=== PATIENT | female | born 1940 | race Caucasian/White ===

== ENCOUNTER 2017-09-10 11:53 | Observation (INO) | payer MEDICARE ==
--- NOTE | 2017-09-10 12:58 | RAD ---
CHEST ONE VIEW: History: Altered mental status. Comparison: None. FINDINGS: Normal cardiac silhouette. The pulmonary vessels and hilum are normal. No massed or consolidation. N o pneumothorax or osseous abnormality. IMPRESSION: No acute cardiopulmonary process. POS: [facility]
--- NOTE | 2017-09-10 13:02 | CT ---
NONCONTRAST HEAD CT: History: Altered mental status. Comparison: None. Technique: Noncontrast head CT is performed in the axial plane. FINDINGS: No parenchymal hemorrhage. No extraaxial hematoma. No midline shift. Basilar cisterns are patent. Br ain volume is age appropriate. Cortical thayer white matter differentiation is preserved. Ventricles and sulci are patent and symmetr ic. Calvarium is intact. Adequate aeration of the sinuses and mastoid air cells. Cavernous carotid ather osclerosis is noted. IMPRESSION: No acute intracranial process. POS: [facility]
[2017-09-10 13:03] LABS: #Eosinphils 0.1 thou/uL (0.0-0.7); #Lymphocytes 1.6 thou/uL (1.20-3.40); #Monocytes 0.6 thou/uL (0.11-0.59); #Neutrophils 8.2 thou/uL (1.40-6.50); %Basophils 0.4 % (0.0-1.0); %Eosinophils 0.8 % (0.0-10.0); %Lymphocytes 15.1 % (21.0-51.0); %Monocytes 5.7 % (0.0-10.0); Hematocrit 44.4 % (36.0-47.0); Mean Platelet Volume 6.9 fL (7.4-10.4); Red Blood Cell (RBC) Count 4.74 mill/uL (4.20-5.40); White Blood Cell (WBC) Count 10.6 thou/uL (4.8-10.8)
[2017-09-10 13:20] LABS: Lactic Acid - Sepsis 2.6 mmol/L (0.5-2.2)
[2017-09-10 13:25] LABS: Bilirubin Negative (Negative); Blood, Urine Trace (Negative); Glucose, Urine (Dipstick) Negative (Negative); Ketone, Urine Negative (Negative); Nitrite Negative (Negative); Protein, Urine (Dipstick) Negative (Neg-Trace); Urobilinogen 0.2 mg/dL (0.2-1.0)
[2017-09-10 13:26] LABS: ALT (SGPT) 19 U/L (8-55); AST (SGOT) 20 U/L (5-34); Alkaline Phosphatase 85 U/L (40-150); Anion Gap 12 mmol/L (10-20); BUN (Urea Nitrogen) 15 mg/dL (9.8-20.1); Bilirubin, Total 1.1 mg/dL (0.2-1.2); CK (CPK) 68 U/L (29-168); Calc. Creatinine Clearance 0 mL/min (70-130); Calcium 9.6 mg/dL (7.8-10.44); Carbon Dioxide 27 mmol/L (23-31); Chloride 105 mmol/L (98-107); Estimated GFR-MDRD 68; Globulin 2.9 g/dL (2.4-3.5); Protein, Total 7.4 g/dL (6.0-8.3)
[2017-09-10 13:27] LABS: Bacteria/HPF None Seen HPF (None Seen); Hyaline Casts/LPF 0-3 HYALINE CAST LPF (0-3 Hyaline); Squamous Epithelial None Seen HPF (0-3); WBC/HPF 0-3 HPF (0-3)
[2017-09-10 13:29] LABS: Troponin I 0.012 ng/mL (< 0.028)
[2017-09-10 15:47] VITALS: BMI 26.9
[2017-09-10] MEDS ORDERED: Ondansetron ODT 4 MG TAB SL PRN (16:41)
[2017-09-10] MEDS ORDERED: Ondansetron HCl/PF 4 MG/2 ML Vial IVP PRN ×2 (16:41→18:07)
[2017-09-10] MEDS ORDERED: Acetaminophen 500 MG TAB PO PRN (18:07)
[2017-09-10] MEDS ORDERED: cloNIDine HCl 0.1 MG TAB PO PRN (18:07)
[2017-09-10] MEDS ORDERED: Loratadine 10 MG TAB PO PRN (18:07)
[2017-09-10] MEDS ORDERED: Ondansetron ODT 4 MG TAB PO PRN (18:07)
[2017-09-10] MEDS ORDERED: Azithromycin 250 MG TAB PO SCH (18:15)
[2017-09-10] MEDS: Sodium Chloride 0.9% 1,000 ML IV SCH (18:30)
--- NOTE | 2017-09-10 18:51 | HP ---
DATE OF ADMISSION: 09/10/2017 PRIMARY CARE PROVIDER: Dr. Trice Padilla. CHIEF COMPLAINT: Altered mental status. HISTORY OF PRESENT ILLNESS: This is a 77-year-old female who presents to [facility] with complaints of confusion and altered mental status. The history is obtained a fter interviewing the patient as well as patient's and review of the electronic medical [address] in the emergency room. The patient states that she had been battling a head cold and cough over the last 10-12 days, self treating with pojm-csl-hjpkcem cold remedies including Nyquil over the las t 12 days, Mucinex and Robitussin and Robitussin without specific relief of her symptoms. The patie nt states she became concerned when her symptoms did not improve and presented to her ENT for evalua tion. The patient states that she does not recall driving to her ENT visit and does not recall visi t itself, but does state that she was prescribed antibiotic therapy which she feels was Zithromax. The patient states she apparently left the ENT's office and does not recall her journey, apparently leaving the ENT office and becoming confused and unable to return home. Her called her appr oximately 1 hour after she was suppose to return stating that she was unsure of how to get home or w here she was. The patient has exhibited nothing similar to this in the past and has no memory issue s as far as the patient or her report. Patient does not recall driving to the gas station w here she was picked up by her and has little recollection of her transfer to the emergency r oom. The reports patient kept asking similar questions repeatedly after answering them. In the emergency room, the patient underwent general evaluation and was apparently oriented to person, place and time by the exam recorded in the EMR. The patient denies any other prescription medicati ons other than levothyroxine, which she is taking chronically. The patient denied any narcotic expo sure, but does admit to taking Nyquil regularly over the last 10-12 days. The patient denies any sl eep deprivation, recent head trauma, injury, but does admit to the head cold with congestion and kenyetta n over her left teeth. The patient denies any recent travel history or recent vaccinations. In the emergency room, patient underwent CT imaging of the brain showing no acute process and portable miley st x-ray was negative. The patient was transferred to the telemetry unit for further evaluation. PAST MEDICAL HISTORY: 1. Hypothyroidism with thyroid replacement therapy. 2. Hyperlipidemia. PAST SURGICAL HISTORY: Status post thyroid cyst removal. CURRENT MEDICATIONS: 1. Levothyroxine 75 mcg 1 tablet p.o. daily. 2. Simvastatin 10 mg 1 tablet p.o. daily. ALLERGIES: PENICILLIN. FAMILY HISTORY: No inheritable diseases per patient report. Mother lived into her upper 90s. SOCIAL HISTORY: The patient is , accompanied by her in the hospital. Resides in [place], [place]. Retired. Occasional alcohol use. No tobacco or illicit drug use. REVIEW OF SYSTEMS: The following complete review of systems was negative, unless otherwise mentione d in the HPI or below: Constitutional: Weight loss or gain, ability to conduct usual activities. Skin: Rash, itching. Eyes: Double vision, pain. ENT/Mouth: Nose bleeding, neck stiffness, pain, tenderness. Cardiovascular: Palpitations, dyspnea on exertion, orthopnea. Respiratory: Shortness of breath, wheezing, cough, hemoptysis, fever or night sweats. Gastrointestinal: Poor appetite, abdominal pain, heartburn, nausea, vomiting, constipation, or diar vannessa. Genitourinary: Urgency, frequency, dysuria, nocturia. Musculoskeletal: Pain, swelling. Neurologic/Psychiatric: Anxiety, depression. Allergy/Immunologic: Skin rash, bleeding tendency. Otherwise negative except as stated per HPI. PHYSICAL EXAMINATION: VITAL SIGNS: In the emergency room on admission, blood pressure 204/89, pulse 79, respiratory rate 16, temperature 98.9 degrees Fahrenheit, O2 saturation 96% on room air. GENERAL APPEARANCE: This is a 77-year-old female, alert and oriented x3, pleasant, respon sive, in no acute distress. HEENT: Pupils are equal, round, and reactive to light and accommodation. Extraocular muscles are i ntact. No scleral icterus, no conjunctival injection. Nares patent. OP is clear. Teeth in good r epair. NECK: Supple, no cervical adenopathy, no thyromegaly, no carotid bruits, no JVD appreciated. Cervi jhon spine with full active and passive range of motion. CHEST: Lungs are clear to auscultation bilaterally. CARDIOVASCULAR: S1 and S2 without noted murmur. ABDOMEN: Rounded, soft, nontender, nondistended. Bowel sounds are positive in all four quadrants. There is no hepatosplenomegaly, no abdominal bruits, no rebound or guarding appreciated. EXTREMITIES: Warm and dry with fair turgor. No clubbing, cyanosis or asymmetric edema appreciated. Pulses palpable distally at the dorsalis pedis, posterior tibial, and popliteal arteries bilateral ly. Capillary refill less than 2 seconds. NEUROLOGIC: Cranial nerves II-XII are grossly intact. No focal or lateralizing signs are appreciat ed. PERTINENT LABORATORY DATA AND X-RAY FINDINGS: Complete metabolic profile within normal limits. Lac tic acid level ranged between 1.2-2.6, troponin I negative x1. CBC showed a white blood cell count of 10.6, hemoglobin 15, hematocrit 44, platelet count 274 with 78% neutrophils. Urinalysis showed t race blood and trace leukocyte esterase. Portable chest x-ray dated 09/10/2017 showed no acute card iopulmonary process. CT of the brain without contrast dated 09/10/2015 showed no acute intracranial process. EKG dated 09/10/2017 by my interpretation shows a sinus mechanism with rates in the 70s. Normal R-wave progression noted in the precordial leads. Left axis deviation noted. No acute ST-T wave changes appreciated. ASSESSMENT AND PLAN: 1. Acute encephalopathy, etiology unclear. Questionable iatrogenic effect with potential over the counter medication component. We will proceed with neuro imaging including MRI of the brain to rule out occult infarct or tumor. Check carotid Doppler study to rule out focal stenosis. Check TSH an d free T4 level. Continue to monitor clinically. 2. Elevated blood pressure. No specific history of hypertension per patient report. We will veronika nue to monitor blood pressure trend and treat accordingly. 3. Hypothyroidism. Resume levothyroxine 75 mcg daily. Check TSH and free T4 level in the a.m. 4. Question of acute on chronic bronchitis. Start Zithromax 500 mg daily, albuterol metered dose i nhaler 2 puffs q.6 hourly p.r.n., Tessalon Perles 200 mg p.o. q.6 hours. 5. Prophylaxis. Sequential compression devices while in bed. Pepcid 20 mg p.o. b.i.d. 6. Code status is FULL. Surrogate medical decision maker is patient's spouse.
[2017-09-10] MEDS: PROVENTIL INHALER 6.7 G (200 INHALATIONS) INH SCH (19:02)
[2017-09-10] MEDS: Benzonatate 100 MG CAP PO PRN (21:22)
[2017-09-10] MEDS: Famotidine 20 MG TAB PO SCH (21:22)
--- NOTE | 2017-09-10 21:57 | ULT ---
BILATERAL CAROTID DUPLEX ULTRASOUND WITH SPECTRAL ANALYSIS AND COLOR FLOW EVALUATION: 09/10/17 HISTORY: Altered mental status. FINDINGS: Dupont scale, color flow, doppler evaluation, and spectral analysis of the bilateral carotid arteries is performed with 2D imaging. There is atherosclerotic plaque seen within the distal common carotid arteries as well as involving the carotid bulbs and proximal internal carotid arteries. There is less than 50% maximal stenosis in the bilateral internal carotid arteries according to the peak systolic velocities and the ICA/CCA ratios. The peak systolic velocity in the right ICA is 76 c m/s with an ICA/CCA ratio of 0.82. The peak systolic velocity in the left ICA is 93 cm/s with an ICA /CCA ratio of 0.87. Antegrade flow is demonstrated in the vertebral arteries bilaterally. IMPRESSION: No hemodynamically significant stenosis in the blateral internal carotid arteries. POS: [facility]
[2017-09-11] MEDS: PROVENTIL INHALER 6.7 G (200 INHALATIONS) INH SCH ×3 (01:10→13:24)
[2017-09-11] MEDS: Benzonatate 100 MG CAP PO PRN ×2 (04:12→11:12)
[2017-09-11] MEDS: Sodium Chloride 0.9% 1,000 ML IV SCH (04:12)
[2017-09-11] MEDS ORDERED: Levothyroxine Sodium 75 MCG TAB PO SCH (06:00)
[2017-09-11] MEDS: Famotidine 20 MG TAB PO SCH (08:56)
[2017-09-11] MEDS ORDERED: FLU VACC TS2017-18 (>65YR) 0.5 ML SYRINGE IM ONE (09:00)
--- NOTE | 2017-09-11 10:25 | PDOC.PN ---
- Subjective Encounter Start Date: 09/11/17 Encounter Start Time: 10:23 Patient seen at bedside. More lucid today, back to baseline. No overnight events , no new complaints. - Objective Resuscitation Status: Resuscitation Status FULL:Full Resuscitation MAR Reviewed: Yes Vital Signs & Weight: Vital Signs (12 hours) Temp Pulse Resp BP Pulse Ox 09/11/17 08:00 97.8 F 60 16 09/11/17 07:30 97.8 F 60 16 130/59 L 98 09/11/17 03:56 97.6 F 71 12 127/66 98 09/10/17 23:58 98.2 F 71 12 134/67 98 Weight Weight 173 lb 3.2 oz I&O: 09/10/17 09/11/17 09/12/17 06:59 06:59 06:59 Intake Total 1626 Balance 1626 Result Diagrams: 09/10/17 12:40 09/10/17 12:40 Phys Exam - Physical Examination Constitutional: NAD HEENT: moist MMs Neck: no JVD Respiratory: clear to auscultation bilateral Cardiovascular: RRR Gastrointestinal: soft Musculoskeletal: pulses present Neurological: moves all 4 limbs Psychiatric: normal affect, A&O x 3 Dx/Plan (1) Altered mental status Code(s): R41.82 - ALTERED MENTAL STATUS, UNSPECIFIED Status: Resolved (2) Hyperlipidemia Code(s): E78.5 - HYPERLIPIDEMIA, UNSPECIFIED Status: Chronic - Plan cont current plan of care, plan discussed w/ family, PT/OT, social work msw * AMS is likely due to iatrogenic ingestion of OTC cold medications. Currently she is back to baseline. * D/C Home if MRI negative
[2017-09-11 12:03] VITALS: BP 137/65; TEMP 97.7
--- NOTE | 2017-09-11 13:32 | MRI ---
MRI OF THE BRAIN: Comparison: None. History: Amnesia, altered mental status. Patient cannot remember five hours from yesterday. Technique: Multiplanar, multisequence MRI images were obtained of the brain without and with IV cont rast. FINDINGS: There are few scattered foci of high FLAIR signal in the subcortical and periventricular white matte r, likely secondary to small vessel ischemic disease. No restricted diffusion is seen to suggest an acute infarction. No abnormal enhancement is seen on this examination. There is no evidence of hydro cephalus, intracranial hemorrhage, or extraaxial fluid collection. The expected flow voids are present. The corpus callosum, pituitary, and craniocervical junction are unremarkable. The visualized paranasal sinuses and mastoid air cells are well aerated. IMPRESSION: Small vessel ischemic disease without acute intracranial abnormality. POS: [facility]
--- NOTE | 2017-09-11 16:34 | DIS ---
DATE OF ADMISSION: 09/10/2017 DATE OF DISCHARGE: 09/11/2017 DISCHARGE DISPOSITION: Home. DISCHARGE DIAGNOSES: 1. Altered mental status, secondary to excessive NyQuil and dyex-xyd-azqvonu cold medication intake . 2. Hypothyroidism. 3. Hyperlipidemia. INPATIENT CONSULTATIONS: None. INPATIENT RADIOGRAPHIC EXAMINATIONS: 1. Chest x-ray, which revealed no acute cardiopulmonary process. 2. CT of the brain without contrast, which revealed no acute intracranial process. 3. Ultrasound of the carotids, which revealed no hemodynamically significant stenosis in bilateral internal carotid arteries. 4. MRI of the brain, which revealed small-vessel ischemic disease without acute intracranial abnorm alities. There was no hydrocephalus or intracranial hemorrhage. BRIEF HOSPITAL COURSE: Ms. Claudia Ash is a 77-year-old female with a past medical history of hypothyroidism and hyperlipidemia, who presented to the emergency room complaining of altered menta l status. According to the H and P and the , the patient was suffering from nasal congestion and a cough for the last 10-12 days prior to admission and was treating herself with pefv-oqm-gjxcx er cold remedies including NyQuil as well as Mucinex and Robitussin. She then had an appointment wi th the ENT doctor, at which time everything was normal, but thereafter she did not recall the visit afterwards. She left the ENT's office and became confused. Her called her an hour later an d she was found at a gas station. She was then brought to the emergency room where she was evaluate d for altered mental status. Initial CT imaging was negative. She was then subsequently placed on observation onto the stroke floor. Over the course of 24 hours, the patient's mentation improved dr amatically. Her imaging has been negative. Her MRI did not show evidence of an acute stroke nor di d her CT of the brain. Her carotid ultrasounds have been negative. She is back to her baseline at this time. She states that she does get some symptomatic improvement, but her ENT told it was chron ic bronchitis with albuterol. She will be discharged with an albuterol inhaler to be used p.r.n. S he is back to her baseline. There are no neurological deficits. She is lucid and aware of her situ ation. She is clinically appropriate for discharge home. Discharged home later today in stable con dition. DISCHARGE MEDICATIONS: 1. Simvastatin 10 mg p.o. at bedtime. 2. Levothyroxine 75 mcg p.o. daily. 3. Albuterol sulfate 2 puffs inhaled q.6 hours p.r.n. This is new. DISCHARGE DIET: Heart healthy. ACTIVITY: As tolerated. RESTRICTIONS: None. CODE STATUS: Full code. ALLERGIES: No known drug allergies. DISCHARGE FOLLOWUP: With her, 1. ENT, Dr. Ortiz as an outpatient. 2. Dr. Padilla as an outpatient. I explained all this to the patient at bedside as well as her , who was at bedside, and they are agreeable to the plan of discharge. All questions have been answered. Total discharge time, 33 minutes.
== END 2017-09-11 14:04 | disposition home or self-care (01) ==
LOC: ERS 11:53 → 2SE 14:00
PROVIDERS: ADMIT Family Medicine; ATTEND Family Medicine
DX: R41.82 Altered mental status, unspecified (principal); E78.5 Hyperlipidemia, unspecified; E03.9 Hypothyroidism, unspecified; Z88.0 Allergy status to penicillin; Z79.899 Other long term (current) drug therapy; Z90.89 Acquired absence of other organs
CPT/HCPCS: 70450; 70553; 71010; 80053; 82550; 82553; 83605; 84439; 84443; 84484; 85025; 90732; 93005; 93880; 94640 ×2; 99285; G0008; G0009; G0378; Q2036; 36415; 81003; 81015; 90471; 90682

== ENCOUNTER 2019-02-25 08:57 | Outpatient (CLI) | payer MEDICARE ==
--- NOTE | 2019-02-25 10:43 | BD ---
BONE DENSITOMETRY USING DEXA: HISTORY: Postmenopausal screening for osteoporosis. FINDINGS: Lumbar Spine: BMD (g/cm2) L1 1.136 T-Score: 1.3 Z-Score: 3.5 L2 1.353 T-Score: 3.0 Z-Score: 5.4 L3 1.418 T-Score: 3.0 Z-Score: 5.6 L4 1.200 T-Score: 1.3 Z-Score: 2.9 L1-L4 1.272 T-Score: 2.0 Z-Score: 4.5 Femoral Neck: 0.826 T-Score: -0.2 Z-Score: 2.0 Total Femur: 1.034 T-Score: 0.8 Z-Score: 2.6 Impression: Normal bone mineral density. No evidence of osteopenia/osteoporosis. POS: [facility]
--- NOTE | 2019-02-25 16:25 | MMO ---
Bilateral MAMMO Bilat Screen DDI+THALIA. CLINICAL HISTORY: Patient is 78 years old and is seen for screening. The patient has the following family history of breast cancer: mother, at age 91. The patient has no personal history of cancer. VIEWS: The views performed were: bilateral craniocaudal with tomosynthesis and bilateral mediolateral oblique with tomosynthesis. FILMS COMPARED: The present examination has been compared to prior imaging studies performed at [facility] on 04/05/2010, 05/25/2011 and 07/27/2015, and at [facility] on 04/05/2003 and 02/21/2006. MAMMOGRAM FINDINGS: There are scattered fibroglandular densities. There are no suspicious masses, suspicious calcifications, or new areas of architectural distortion. IMPRESSION: THERE IS NO MAMMOGRAPHIC EVIDENCE OF MALIGNANCY. A ROUTINE FOLLOW-UP MAMMOGRAM IN 1 YEAR IS RECOMMENDED. THE RESULTS OF THIS EXAM WERE SENT TO THE PATIENT. ACR BI-RADS Category 1 - Negative MAMMOGRAPHY NOTE: 1. A negative mammogram report should not delay a biopsy if a dominant of clinically suspicious mass is present. 2. Approximately 10% to 15% of breast cancers are not detected by mammography. 3. Adenosis and dense breasts may obscure an underlying neoplasm.
== END 2019-02-25 08:58 | disposition home or self-care (01) ==
LOC: BICMAMMO 08:57
PROVIDERS: ATTEND Internal Medicine
DX: Z12.31 Encounter for screening mammogram for malignant neoplasm of breast (principal); Z13.820 Encounter for screening for osteoporosis; Z78.0 Asymptomatic menopausal state; Z80.3 Family history of malignant neoplasm of breast
CPT/HCPCS: 77063; 77067; 77080

== ENCOUNTER 2020-12-05 14:17 | Emergency (ER) | payer MEDICARE ==
[2020-12-05 16:40] LABS: #Monocytes 0.6 thou/uL (0.11-0.59); #Neutrophils 4.2 thou/uL (1.40-6.50); %Basophils 0.8 % (0.0-1.0); %Eosinophils 0.3 % (0.0-10.0); %Lymphocytes 17.1 % (21.0-51.0); %Monocytes 10.2 % (0.0-10.0); %Neutrophils 71.6 % (42.0-75.0); Hemoglobin 13.3 g/dL (12.0-16.0); Mean Corpuscular HGB CONC 33.3 g/dL (32.0-36.0); Mean Corpuscular Hemoglobin 30.7 pg (27.0-31.0); Mean Corpuscular Volume 92.2 fL (78.0-98.0); Mean Platelet Volume 7.3 fL (7.4-10.4); Platelet Count 237 thou/uL (130-400); RBC Distribution Width 11.6 % (11.5-14.5); Red Blood Cell (RBC) Count 4.35 mill/uL (4.20-5.40); White Blood Cell (WBC) Count 5.9 thou/uL (4.8-10.8)
--- NOTE | 2020-12-05 16:50 | RAD ---
CHEST ONE VIEW: History: Shortness of breath, Covid positive. Comparison: 07-18-18 FINDINGS: Faint perihlar and peripheral opacities throughout the lungs. No pneumothorax. No effusion. Cardiac s ilhouette and mediastinal contours are within normal limits. IMPRESSION: Commonnly reported imaging findings of Covid-19 pneumonia. POS: [facility]
[2020-12-05 17:00] LABS: ALT (SGPT) 100 U/L (8-55); AST (SGOT) 121 U/L (5-34); Albumin 3.8 g/dL (3.4-4.8); Alkaline Phosphatase 87 U/L (40-110); Anion Gap 15 mmol/L (10-20); BUN (Urea Nitrogen) 14 mg/dL (9.8-20.1); Bilirubin, Total 1.2 mg/dL (0.2-1.2); Calc. Creatinine Clearance 0 mL/min (70-130); Calcium 7.8 mg/dL (7.8-10.44); Carbon Dioxide 23 mmol/L (23-31); Chloride 102 mmol/L (98-107); Globulin 2.8 g/dL (2.4-3.5); Glucose 89 mg/dL (83-110); Potassium 3.7 mmol/L (3.5-5.1); Protein, Total 6.6 g/dL (6.0-8.3); Sodium 136 mmol/L (136-145)
== END 2020-12-05 20:41 | disposition home or self-care (01) ==
LOC: ERS 14:17
DX: U07.1 COVID-19 (principal); R74.01 Elevation of levels of liver transaminase levels; J45.909 Unspecified asthma, uncomplicated; E03.9 Hypothyroidism, unspecified; Z79.899 Other long term (current) drug therapy
CPT/HCPCS: 36415; 71045; 80053; 85025; 93005

== ENCOUNTER 2021-07-04 10:55 | Outpatient (CLI) | payer MEDICARE | END 2021-07-04 10:56 | disposition home or self-care (01) | LOC: BICMAMMO 10:55 | PROVIDERS: ATTEND Internal Medicine | DX: Z12.31 Encounter for screening mammogram for malignant neoplasm of breast (principal); Z80.3 Family history of malignant neoplasm of breast | CPT/HCPCS: 77063; 77067 ==

== ENCOUNTER 2022-10-08 14:44 | Outpatient (CLI) | payer MEDICARE | END 2022-10-08 14:45 | disposition home or self-care (01) | LOC: BICMAMMO 14:44 | PROVIDERS: ATTEND Internal Medicine | DX: Z12.31 Encounter for screening mammogram for malignant neoplasm of breast (principal); Z80.3 Family history of malignant neoplasm of breast | CPT/HCPCS: 77063; 77067 ==

== ENCOUNTER 2023-08-16 11:33 | Outpatient (CLI) | payer MEDICARE | END 2023-08-16 11:34 | disposition home or self-care (01) | LOC: BICRAD 11:33 | PROVIDERS: ATTEND Internal Medicine | DX: I10 Essential (primary) hypertension (principal) | CPT/HCPCS: 71046 ==

== ENCOUNTER 2024-01-08 13:13 | Outpatient (CLI) | payer MEDICARE | END 2024-01-08 13:14 | disposition home or self-care (01) | LOC: BICMAMMO 13:13 | PROVIDERS: ATTEND Internal Medicine | DX: Z12.31 Encounter for screening mammogram for malignant neoplasm of breast (principal); Z13.820 Encounter for screening for osteoporosis; M85.851 Other specified disorders of bone density and structure, right thigh; Z78.0 Asymptomatic menopausal state | CPT/HCPCS: 77063; 77067; 77080 ==

== ENCOUNTER 2024-01-17 06:58 | Outpatient (CLI) | payer MEDICARE | END 2024-01-17 06:59 | disposition home or self-care (01) | LOC: BICULT 06:58 | PROVIDERS: ATTEND Internal Medicine | DX: R79.89 Other specified abnormal findings of blood chemistry (principal); K76.0 Fatty (change of) liver, not elsewhere classified; K82.4 Cholesterolosis of gallbladder | CPT/HCPCS: 76700 ==

== ENCOUNTER 2024-08-28 07:35 | Outpatient (CLI) | payer MEDICARE | END 2024-08-28 07:36 | disposition home or self-care (01) | LOC: BICULT 07:35 | PROVIDERS: ATTEND Physician Assistant Medical | DX: K82.4 Cholesterolosis of gallbladder (principal); K21.9 Gastro-esophageal reflux disease without esophagitis; K58.0 Irritable bowel syndrome with diarrhea | CPT/HCPCS: 76705 ==

== ENCOUNTER 2024-11-18 10:32 | Outpatient (CLI) | payer MEDICARE | END 2024-11-18 10:33 | disposition home or self-care (01) | LOC: BICRAD 10:32 | PROVIDERS: ATTEND Internal Medicine | DX: R05.1 Acute cough (principal) | CPT/HCPCS: 71046 ==

== ENCOUNTER 2024-12-24 08:38 | Outpatient (CLI) | payer MEDICARE | END 2024-12-24 08:39 | disposition home or self-care (01) | LOC: RAD 08:38 | PROVIDERS: ATTEND Internal Medicine | DX: R06.00 Dyspnea, unspecified (principal) | CPT/HCPCS: 71046 ==

== ENCOUNTER 2025-08-09 07:54 | Outpatient (CLI) | payer MEDICARE | END 2025-08-09 07:55 | disposition home or self-care (01) | LOC: ULT 07:54 | PROVIDERS: ATTEND Physician Assistant Medical | DX: K82.4 Cholesterolosis of gallbladder (principal); K58.0 Irritable bowel syndrome with diarrhea; K76.0 Fatty (change of) liver, not elsewhere classified | CPT/HCPCS: 76705 ==